=== PATIENT | female | born 1970 | race Caucasian/White ===

== ENCOUNTER 2017-04-22 15:28 | Emergency (ER) | payer SELFPAY ==
[~2017-04-22] VITALS: Ht 162.6 cm; Wt 99.0 kg
[2017-04-22 15:31] VITALS: Ht 162.6 cm; Wt 99.0 kg
[2017-04-22] MEDS ORDERED: HYDROCODONE/APAP (5/325) TAB PO ONE (16:00)
[2017-04-22 16:03] LABS: URINE BLOOD (Dip) POC 3+ (NEGATIVE)
--- NOTE | 2017-04-22 16:19 | RADRPT ---
PROCEDURE: Bilateral lower extremity venous duplex. CLINICAL INDICATION: Lower extremity pain and swelling. TECHNIQUE: Multiple longitudinal and transverse images of the bilateral lower extremity veins were obtained with prather scale and color Doppler imaging. 2D grayscale measurements with compression, co alvin Doppler flow, and augmentation was performed. The calf veins were interrogated as well. COMPARISON: No prior studies are available for comparison. FINDINGS: The bilateral common femoral, superficial femoral and popliteal veins are normally compressible thro ughout. Color flow demonstrates normal filling of the vessel. Normal waveforms are visualized and there is normal response to augmentation. The calf veins visualized are equally unremarkable. IMPRESSION: 1. No evidence of a deep vein thrombosis involving either lower extremity. RPTAT: QQ .Bi Huizar MD, MD Date Time Electronically viewed and signed by .Bi Huizar MD, on 04/22/2017 16:19 .L/
--- NOTE | 2017-04-22 16:47 | ERD ---
ER Documentation Chief Complaint Date/Time DATE: 04/22/17 TIME: 16:47 Chief Complaint b/l feet and leg swelling x 1 day , painful urination HPI This patient is a 46-year-old female presenting to the emergency department for bilateral lower extremity edema as well as dysuria ongoing for the past 2 days. She reports recent 3 day travel on a train with prolonged times of sitting. Her bilateral lower extremity edema and pain is worse with walking. Symptoms are constant. She is a current smoker. She denies all other symptoms. ROS All systems reviewed and are negative except as per history of present illness. Medications Home Meds Active Scripts Cephalexin* (Keflex*) 500 Mg Capsule, 500 MG PO BID for 7 Days, #14 CAP Prov:JOEY NIELSEN PA-C 04/22/17 Allergies Allergies: Coded Allergies: No Known Allergy (Unverified , 04/22/17) PMhx/Soc Medical and Surgical Hx: pt denies Medical Hx, pt denies Surgical Hx Hx Alcohol Use: No Hx Substance Use: No Hx Tobacco Use: No Smoking Status: Never smoker FmHx Noncontributory for chief complaint. Physical Exam Vitals Vital Signs Date Time Temp Pulse Resp B/P Pulse Ox O2 Delivery O2 Flow Rate FiO2 04/22/17 15:31 98.1 106 18 170/85 98 Physical Exam Const: The patient is resting comfortably in no acute distress. Head: Atraumatic Eyes: Normal Conjunctiva ENT: Normal External Ears, Nose and Mouth. Neck: Full range of motion..~ No meningismus. Resp: Clear to auscultation bilaterally Cardio: Regular rate and rhythm, no murmurs Abd: Soft, non tender, non distended. Normal bowel sounds Skin: No petechiae or rashes Back: No midline or flank tenderness Ext: 1+ pitting edema to bilateral lower extremities. Mild calf pain tenderness to palpation bilaterally. Neur: Awake and alert Psych: Normal Mood and Affect Results 24 hrs Laboratory Tests Test 04/22/17 16:06 Bedside Urine pH (LAB) 5.5 Bedside Urine Protein (LAB) 2+ Bedside Urine Glucose (UA) Negative Bedside Urine Ketones (LAB) Negative Bedside Urine Blood 3+ Bedside Urine Nitrite (LAB) Negative Bedside Urine Leukocyte Esterase (L 1+ Current Medications Medications (Trade) Dose Ordered Sig/Eladio Route PRN Reason Start Time Stop Time Status Last Admin Dose Admin Acetaminophen/ Hydrocodone Bitart ([place] (5/346)) 1 tab ONCE ONCE PO 04/22/17 16:00 04/22/17 16:01 DC 04/22/17 15:59 [place] [id number] Radiology Main Line: [phone] DIAGNOSTIC IMAGING REPORT Patient: NATHANAEL IBARRA : 1970 Age: 46 Sex: F MR #: [id number] DOS: 04/22/17 0000 Ordering MD: JOEY NIELSEN PA-C Location: [facility] Room/Bed: PROCEDURE: Bilateral lower extremity venous duplex. CLINICAL INDICATION: Lower extremity pain and swelling. TECHNIQUE: Multiple longitudinal and transverse images of the bilateral lower extremity veins were obtained with prather scale and color Doppler imaging. 2D grayscale measurements with compression, color Doppler flow, and augmentation was performed. The calf veins were interrogated as well. COMPARISON: No prior studies are available for comparison. FINDINGS: The bilateral common femoral, superficial femoral and popliteal veins are normally compressible throughout. Color flow demonstrates normal filling of the vessel. Normal waveforms are visualized and there is normal response to augmentation. The calf veins visualized are equally unremarkable. IMPRESSION: 1. No evidence of a deep vein thrombosis involving either lower extremity. RPTAT: QQ .Bi Huizar MD, MD Date Time Electronically viewed and signed by .Bi Huizar MD, on 04/22/2017 16:19 .L/ CC: JOEY NIELSEN PA-C Procedures/MDM 46-year-old female presenting to the emergency department for dysuria and bilateral lower extremity edema. On exam, blood pressure was elevated at 170/ 85. Patient's blood pressure was elevated (>120/80) but appears stable without evidence of hypertension emergency or urgency. The patient was counseled about the risks of hypertension and urged to pursue outpatient monitoring and therapy within a week with their primary care physician. Bilateral venous Dopplers to lower extremities show no evidence for DVT and was interpreted by the radiologist. Urine dip was positive for leukocytes and concerning for urinary tract infection. The patient stable for outpatient management with a prescription for cephalexin. Her questions and concerns were addressed. She agreed with the discharge plan of diagnosis. She was advised to elevate her legs anytime she was lying down and increase her walking to decrease lower extremity edema. Close follow-up with primary care physician advised. Strict ER return precautions were discussed. I low suspicion for cellulitis, pyonephritis, septicemia, or other emergent conditions. Departure Diagnosis: Primary Impression: Swelling of both lower extremities Condition: Fair Patient Instructions: Peripheral Edema, Bilateral Referrals: [facility] YOU HAVE RECEIVED A MEDICAL SCREENING EXAM AND THE RESULTS INDICATE THAT YOU DO NOT HAVE A CONDITION THAT REQUIRES URGENT TREATMENT IN THE EMERGENCY DEPARTMENT. FURTHER EVALUATION AND TREATMENT OF YOUR CONDITION CAN WAIT UNTIL YOU ARE SEEN IN YOUR DOCTORS OFFICE WITHIN THE NEXT 1-2 DAYS. IT IS YOUR RESPONSIBILITY TO MAKE AN APPOINTMENT FOR FOLOW-UP CARE. IF YOU HAVE A PRIMARY DOCTOR --you should call your primary doctor and schedule an appointment IF YOU DO NOT HAVE A PRIMARY DOCTOR YOU CAN CALL OUR PHYSICIAN REFERRAL HOTLINE AT IF YOU CAN NOT AFFORD TO SEE A PHYSICIAN YOU CAN CHOSE FROM THE FOLLOWING [facility] [address] [facility]. [facility] [address] [facility] [facility] [address] [facility] [facility] [address] [facility] [facility] [address] [facility]. [facility]. [address] Additional Instructions: Follow up with your PCP within the next 1-3 days for a repeat evaluation and a possible referral to a specialist, if required. Return the the emergency department immediately if symptoms worsen or change. If you have any questions regarding medications, ask your pharmacist or us before you leave. If any adverse reactions, occur while taking your medications, discontinue the treatment and return to the emergency department immediately. If any new or worsening symptoms, uncontrolled fevers, or other unexplained symptoms occur, return to the emergency department immediately. Take your medications as directed, and complete the entire course of treatment. JOEY NIELSEN PA-C Apr 22, 2017 16:47
[2017-04-22] MEDS ORDERED: CEPH-443 PO (16:48)
== END 2017-04-22 16:56 | disposition home or self-care (01) ==
LOC: FTE 15:28
DX: R22.42 Localized swelling, mass and lump, left lower limb (principal); R22.41 Localized swelling, mass and lump, right lower limb
CPT/HCPCS: 81003; 93970